=== PATIENT | female | born 1945 | race Caucasian/White ===

== ENCOUNTER 2016-08-03 13:57 | Day surgery (SDC) | payer MEDICARE, BC ==
[~2016-08-03 13:57] MED LIST: Cataract Ophth Solution EYERT PRN; Hypromellose 2.5% Ophth Soln 15 ML Bottle EYERT PRN; Lactated Ringers 1,000 ML IV SCH; Lidocaine 1% 2 ML ONE; Proparacaine 0.5% Ophth Soln 15 ML Bottle EYERT PRN
[2016-08-03] MEDS ORDERED: Midazolam 1 MG/ML 2 ML SDV ONE (15:28)
[2016-08-03] MEDS ORDERED: Balanced Salt Solution Ophth Irrig 500 ML Bottle IOCULAR ONE ×2 (16:16→16:20)
[2016-08-03] MEDS: Brimonidine 0.2% Ophth Soln 5 ML Bottle ONE ×2 (16:16→16:22)
[2016-08-03] MEDS: Povidone-Iodine 5% Sterile Ophth Soln 30 ML Bottle ONE ×2 (16:17→16:20)
[2016-08-03] MEDS: Lidocaine 3.5% Ophth Gel 1 ML Bottle ONE ×2 (16:17→16:22)
[2016-08-03] MEDS ORDERED: Lidocaine 1% PF 2 ML SDV INFILT ONE ×2 (16:20→16:21)
[2016-08-03] MEDS ORDERED: Chondroitin Sulfate/Hyaluronate Sodium Ophth Inj 0.5 ML Syringe IOCULAR ONE ×2 (16:21→16:22)
[2016-08-03] MEDS ORDERED: Ciprofloxacin 0.3% Ophth Soln 2.5 ML Bottle EYERT ONE (16:22)
[2016-08-03] MEDS ORDERED: Vancomycin 500 MG SDV EYERT ONE (16:22)
[2016-08-03 17:13] VITALS: BP 164/74
--- NOTE | 2016-08-03 21:10 | OR ---
PREOPERATIVE DIAGNOSIS: Senile nuclear cataract, right eye. POSTPROCEDURE DIAGNOSIS: Pseudophakia, right eye. PROCEDURE PERFORMED: Cataract extraction with intraocular lens implantation by phacoemulsification technique, right eye. ANESTHESIA: Topical anesthesia. ESTIMATED BLOOD LOSS: None. COMPLICATIONS: None. INDICATIONS: The patient is a 70-year-old female, who was found to have a senile nuclear cataract, reducing her best corrected visual acuity. After explaining the risks, benefits, and alternatives of cataract surgery, an informed consent was obtained. DESCRIPTION OF PROCEDURE: After identifying the patient in the preoperative area, the patient was brought to the operating room. The patient was prepped and draped in a sterile fashion. A lid speculum was inserted into the eye. The microscope was brought into the field. Lidocaine gel was applied to the external surface of the eye. A paracentesis was made 3 clock hours away from the surgeon's operating hand. The anterior chamber was anesthetized with preservative-free Lidocaine. The anterior chamber was filled with Viscoat. A clear corneal incision was made at the 180-degree meridian with a 2.75mm keratome. A continuous tear circular capsulorrhexis was performed. The nucleus was hydrodissected with balanced salt solution. The nucleus was sculpted and removed from the eye using a divide and conquer technique with the phacoemulsification handpiece. The residual viscoelastic was removed with the I/A handpiece. The anterior chamber and capsular bag were filled with Amvisc. An ELENI lens, model PCB00 with a power of 21.0 diopters and a serial number of [id number] was injected into the capsular bag. The lens was rotated completely into the capsular bag with a Sinskey hook. The residual viscoelastic was removed with the I/A handpiece. The anterior chamber was filled with balanced salt solution to a physiologic pressure. The corneal wound was closed with stromal hydration and seen to be water tight by Weck-Laury sponge testing. The patient received a drop of Zymar and Alphagan at the end of the case. There were no complications of this case. The patient will be followed postoperatively by Dr. France Camacho. SKA: 08/03/2016 16:35:41 MODL: 08/03/2016 21:03:06 /[id number]
== END 2016-08-03 17:17 | disposition home or self-care (01) ==
LOC: VM.SDS 13:57
PROVIDERS: ATTEND Ophthalmology
DX: H25.11 Age-related nuclear cataract, right eye (principal); Z96.1 Presence of intraocular lens; D50.9 Iron deficiency anemia, unspecified; F42.9 Obsessive-compulsive disorder, unspecified; F33.1 Major depressive disorder, recurrent, moderate; Z88.8 Allergy status to other drugs, medicaments and biological substances; Z79.899 Other long term (current) drug therapy
CPT/HCPCS: 00142; 66984; A9270; J2250; J3370; J7120; V2632

== ENCOUNTER 2017-10-13 07:01 | Day surgery (SDC) | payer MEDICARE, BC ==
[~2017-10-13 07:01] MED LIST changes: -Cataract Ophth Solution EYERT PRN; -Hypromellose 2.5% Ophth Soln 15 ML Bottle EYERT PRN; -Lidocaine 1% 2 ML ONE; -Proparacaine 0.5% Ophth Soln 15 ML Bottle EYERT PRN
[2017-10-13] MEDS ORDERED: fentaNYL 100 MCG/2 ML SDV ONE (07:43)
[2017-10-13] MEDS ORDERED: Propofol 200 MG/20 ML SDV ONE (07:43)
[2017-10-13 09:26] VITALS: BP 120/58
--- NOTE | 2017-10-13 15:13 | OR ---
PREOPERATIVE DIAGNOSIS: Persistent nausea, epigastric pain. POSTOPERATIVE DIAGNOSIS: Status post gastric bypass with anastomotic ulcers. PROCEDURE PROPOSED AND PROCEDURE DONE: Upper gastrointestinal panendoscopy with gastric biopsies. INDICATION: This is a 72-year-old female, who had a gastric bypass surgery done about 22 years ago. Recently, she has been having a lot of persistent nausea and some epigastric pain, and she also has been on Protonix for quite a few years. She feels that the most recent nausea started when she was on an arthritic medicine and that was stopped and now she is on methotrexate. She has had some very slight improvement, and she just recently increased her Protonix to twice a day. TECHNIQUE: The patient was brought to the endoscopy suite and placed in left lateral decubitus position. She was sedated per TELEPHONE RECORDER with propofol. A flexible video gastroscope was then passed transorally and under visualization advanced well into the esophagus. I then advanced the scope through the pylorus. She had a very small gastric pouch from previous gastric bypass surgery. The anastomosis was patent to the jejunal anastomosis, but right in the anastomotic area, there was a small circular ulcer and also a linear ulcer which certainly could be the cause of pain. I then advanced the scope well down the jejunal limb. I was unable to get down deep enough to get back into the partitioned off part of the stomach. I brought the scope back into the gastric pouch and a couple biopsies were taken of the mucosa to rule out H. pylori. There were no signs of any GERD or esophageal stenosis, and the remainder of esophagus was normal as the scope was then withdrawn. The patient tolerated the procedure well. FINAL IMPRESSION: Anastomotic ulcers status post gastric bypass procedure. PLAN: The patient just recently got increased to Protonix twice a day, and I think we should give that time to see if the dosing help her. One could always add some Carafate if she is not improving and may benefit with a GI referral if she does not improve. SCM: 10/13/2017 08:59:15 MODL: 10/13/2017 15:07:45 /[id number]
== END 2017-10-13 10:10 | disposition home or self-care (01) ==
LOC: VM.SDS 07:01
PROVIDERS: ATTEND Surgery
DX: K28.9 Gastrojejunal ulcer, unspecified as acute or chronic, without hemorrhage or perforation (principal); I10 Essential (primary) hypertension; F41.1 Generalized anxiety disorder; D50.9 Iron deficiency anemia, unspecified; Z98.84 Bariatric surgery status; Z88.8 Allergy status to other drugs, medicaments and biological substances
CPT/HCPCS: 00731; 43239; J2704; J3010; J7120

== ENCOUNTER 2019-10-25 21:59 | Emergency (ER) | payer MEDICARE ==
[2019-10-25] MEDS ORDERED: Lactated Ringers 1,000 ML IV ONE (22:19)
--- NOTE | 2019-10-25 22:21 | EDM.PDOC ---
ED HPI GENERAL MEDICAL PROBLEM - General Stated Complaint: fever weakness Time Seen by Provider: 10/25/19 22:10 Source of Information: Reports: Patient History Limitations: Reports: No Limitations - History of Present Illness INITIAL COMMENTS - FREE TEXT/NARRATIVE: Patient comes emergency department today from home with concerns of weakness and a fever. This patient starting on Monday of this week she took her methotrexate 50 mg injection twice a day on Monday and although this was only supposed to be once a week injection. She has been struggling with some memory issues at home according to the and she accidentally took a rather large amount of methotrexate over 2-day. Accidentally. 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 Yesterday she felt very weak fatigued and tired. Last night and this morning she noticed a fever. She has very diaphoretic she is very fatigued and malaised all over she has no energy. She has no chest pain shortness of breath or difficulty breathing. No cough or shortness of breath. Complain of generalized malaise and fatigue. No body aches. No abdominal pain nausea or vomiting. She does complain of quite a bit of sores in her mouth. She has had very little appetite. No nausea or vomiting. No abdominal pain. No hematuria dysuria or urinary frequency. No black or tarry stools. lower legs/hips Pain Score (Numeric/FACES): 8 - Related Data Allergies Allergy/AdvReac Type Severity Reaction Status Date / Time bupropion [From Wellbutrin] Allergy Headache Verified 10/25/19 23:33 gabapentin Allergy Other Verified 10/25/19 23:33 pregabalin [From Lyrica] Allergy Swelling Verified 10/25/19 23:33 Home Meds: Home Meds Mirtazapine [Remeron] 15 mg PO BEDTIME 03/10/15 [History] Modafinil [Provigil] 200 mg PO Q12H 03/10/15 [History] Pantoprazole [Protonix] 40 mg PO BIDMEALS 03/10/15 [History] SUMAtriptan succinate [Imitrex] 100 mg PO ASDIRECTED PRN 03/10/15 [History] traZODone 200 mg PO BEDTIME PRN 03/10/15 [History] Calcium Carbonate/Vitamin D3 [Calcium 600 + Vit D Softgel] 1 tab PO DAILY 08/02/16 [History] Celecoxib [CeleBREX] 200 mg PO BEDTIME 08/02/16 [History] Cholecalciferol (Vitamin D3) [Vitamin D3] 2,000 unit PO DAILY 08/02/16 [History] Cyanocobalamin (Vitamin B12) [Vitamin B12] 1 tab PO DAILY 08/02/16 [History] DULoxetine [Cymbalta] 60 mg PO BID 08/02/16 [History] Ferrous Sulfate 325 mg PO DAILY 08/02/16 [History] Multivitamin [Multivitamins] 1 tab PO DAILY 08/02/16 [History] ClonazePAM [KlonoPIN] 1 mg PO ASDIRECTED 10/13/17 [History] Magnesium Oxide [Magnesium] 500 mg PO DAILY 10/13/17 [History] Verapamil HCl [Verapamil ER Pm] 100 mg PO BEDTIME 10/13/17 [History] metHOTREXate sodium [Methotrexate] 20 mg PO Q7D 10/13/17 [History] ARIPiprazole [Abilify] 10 mg PO DAILY 02/20/18 [History] Acetaminophen [Tylenol Arthritis] 1,300 mg PO TID PRN 02/20/18 [History] Folic Acid 1 mg PO DAILY 02/20/18 [History] Metoclopramide HCl 5 mg PO Q8H PRN 02/20/18 [History] Nortriptyline 10 mg PO BEDTIME 02/20/18 [History] Vitamin A 8,000 unit PO BID 02/20/18 [History] Vitamin B Complex 1 each PO DAILY 02/20/18 [History] Diclofenac Sodium [Voltaren 1%] 8 gm TP QID 90 Days #8 tube 02/26/19 [Rx] traMADol [Ultram] 50 - 100 mg PO Q6H PRN 30 Days #180 tablet 10/14/19 [Rx] traMADol [Ultram] 50 - 100 mg PO Q6H PRN 30 Days #180 tablet MDD 6 tabs 10/15/19 [Rx] Past Medical History HEENT History: Reports: Cataract Cardiovascular History: Reports: Other (See Below) Other Cardiovascular History: abnormal stress echo Respiratory History: Reports: SOB Gastrointestinal History: Reports: GERD Other Gastrointestinal History: duodenal ulcer, polyps Musculoskeletal History: Reports: Arthritis, Fibromyalgia, Osteoarthritis Other Musculoskeletal History: lumbar spondylolysis, cervicalgia, shoulder impingement, tennis elbow. carpal tunnel. knee pain bilat. Last fall 3 weeks ago Neurological History: Reports: Concussion, Migraines, Neuropathy, Peripheral Other Neuro History: chronic fatigue. ddd. Insomnia. Concussion 05/15/19 from fall. Dizziness Psychiatric History: Reports: Anxiety, Depression, OCD Other Psychiatric History: insomnia Endocrine/Metabolic History: Reports: None Hematologic History: Reports: Anemia, Iron Deficiency Oncologic (Cancer) History: Reports: None - Past Surgical History HEENT Surgical History: Reports: Other (See Below) Other HEENT Surgeries/Procedures: TATOOS TO EYELIDS AND EYEBROWS Cardiovascular Surgical History: Reports: None Respiratory Surgical History: Reports: None GI Surgical History: Reports: Appendectomy, Bariatric Procedure, Cholecystectomy, Colonoscopy, EGD Female Surgical History: Reports: None Musculoskeletal Surgical History: Reports: Carpal Tunnel, ORIF, Other (See Below) Other Musculoskeletal Surgeries/Procedures:: THUMB FUSION WITH SKREWS RELATED TO CARPAL TUNNEL ISSUES Social & Family History - Family History Cardiac: Reports: Hypertension Respiratory: Reports: Sleep Apnea Musculoskeletal: Reports: Arthritis, Back pain, Chronic, Fibromyalgia, Neck Pain, Chronic, Osteoporosis, RA Neurological: Reports: Migraines, Neuropathy, Diabetic Endocrine/Metabolic: Reports: Diabetes, type II, Hypothyroidism, Obesity/MBI 30+ Oncologic: Reports: Thyroid - Caffeine Use Caffeine Use: Reports: Coffee Caffeine Use Comment: 2 CUPS A DAY - Living Situation & Occupation Living situation: Reports: , with Spouse 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 Good social network.) ED ROS GENERAL - Review of Systems Review Of Systems: Comprehensive ROS is negative, except as noted in HPI. ED EXAM, GENERAL - Physical Exam Exam: See Below Free Text/Narrative:: When I enter the room the patient is quite pale and quite diaphoretic. Exam Limited By: No Limitations General Appearance: Alert, WD/WN, Moderate Distress Eye Exam: Bilateral Eye: EOMI Ears: Normal External Exam, Normal TMs Nose: Normal Inspection Throat/Mouth: Normal Teeth, No Airway Compromise, Other (She has pretty profound stomatitis on the lips and throughout the bucca mucosa underlying the tongue as well. Oral cavity is dry.) Head: Atraumatic, Normocephalic Neck: Normal Inspection, Supple, Non-Tender, Full Range of Motion Respiratory/Chest: No Respiratory Distress, Lungs Clear, Normal Breath Sounds, No Accessory Muscle Use, Chest Non-Tender Cardiovascular: Normal Peripheral Pulses, Regular Rate, Rhythm, Tachycardia Peripheral Pulses: 2+: Radial (L), Radial (R), Posterior Tibial (L), Posterior Tibial (R), Dorsalis Pedis (L), Dorsalis Pedis (R) GI/Abdominal: Normal Bowel Sounds, Soft, Non-Tender (Female) Exam: Deferred Rectal (Female) Exam: Deferred Back Exam: Normal Inspection, Full Range of Motion Extremities: Normal Range of Motion, Non-Tender, No Pedal Edema, Normal Capillary Refill, Pallor Neurological: Alert, Oriented, CN II-XII Intact, Normal Cognition, No Motor/Sensory Deficits Psychiatric: Flat Affect Skin Exam: Intact, Cool, Diaphoretic Lymphatic: No Adenopathy Course - Vital Signs Last Recorded V/S: Last Vital Signs Temp 96.5 F L 10/25/19 23:19 Pulse 97 10/25/19 23:25 Resp 16 10/25/19 23:25 BP 140/73 10/25/19 23:25 Pulse Ox 98 10/25/19 23:25 - Orders/Labs/Meds Orders: Active Orders 24 hr Category Date Time Status Oxygen Therapy Adult [Oxygen Therapy, ED] [] Care 10/25/19 22:30 Active ASDIRECTED CULTURE BLOOD [BC] Stat Lab 10/25/19 22:37 Received CULTURE BLOOD [BC] Stat Lab 10/25/19 22:43 Received Blood Culture x2 Reflex Set [OM.PC] Stat Oth 10/25/19 22:07 Ordered Labs: Laboratory Tests 10/25/19 10/25/19 10/25/19 Range/Units 22:05 22:37 22:37 WBC 0.8 L* (4.0-10.0) x10^3/uL RBC 3.46 L (4.00-5.50) x10^6/uL Hgb 11.4 L (12.0-16.0) g/dL Hct 33.3 (33.0-47.0) % MCV 96.2 H (78.0-93.0) fL MCH 32.9 H (26.0-32.0) pg MCHC 34.2 (32.0-36.0) g/dL RDW Coeff of Holli 11.8 (10.0-15.0) % Plt Count 232 (130-400) x10^3/uL Add Manual Diff Yes Neutrophils % (Manual) 18 L (50-80) % Lymphocytes % (Manual) 50 (25-50) % Reactive Lymphs % 2 H (0) % Monocytes % (Manual) 16 H (2-11) % Eosinophils % (Manual) 14 H (0-4) % Platelet Estimate Adequate Macrocytosis 1+ slight H Sodium 134 L (136-145) mmol/L Potassium 3.7 (3.5-5.1) mmol/L Chloride 97 L (98-107) mmol/L Carbon Dioxide 28 (21-32) mmol/L Anion Gap 12.7 (10-20) mmol/L BUN 13 (7-18) mg/dL Creatinine 0.5 L (0.55-1.02) mg/dL Est Cr Clr Drug Dosing TNP Estimated GFR (MDRD) > 60 Glucose 132 H (74-106) mg/dL Lactic Acid (0.4-2.0) mmol/L Calcium 8.8 (8.5-10.1) mg/dL Corrected Calcium 9.68 (8.5-10.1) mg/dL Total Bilirubin 0.7 (0.2-1.0) mg/dL AST 51 H (15-37) U/L ALT 74 H (14-59) U/L Alkaline Phosphatase 82 (46-116) U/L C-Reactive Protein 3.9 H (<=0.9) mg/dL Total Protein 5.7 L (6.4-8.2) g/dL Albumin 2.9 L (3.4-5.0) g/dL Globulin 2.8 Albumin/Globulin Ratio 1.04 COVID-19 (PHYLLIS) Negative (NEGATIVE) 10/25/19 Range/Units 22:37 WBC (4.0-10.0) x10^3/uL RBC (4.00-5.50) x10^6/uL Hgb (12.0-16.0) g/dL Hct (33.0-47.0) % MCV (78.0-93.0) fL MCH (26.0-32.0) pg MCHC (32.0-36.0) g/dL RDW Coeff of Holli (10.0-15.0) % Plt Count (130-400) x10^3/uL Add Manual Diff Neutrophils % (Manual) (50-80) % Lymphocytes % (Manual) (25-50) % Reactive Lymphs % (0) % Monocytes % (Manual) (2-11) % Eosinophils % (Manual) (0-4) % Platelet Estimate Macrocytosis Sodium (136-145) mmol/L Potassium (3.5-5.1) mmol/L Chloride (98-107) mmol/L Carbon Dioxide (21-32) mmol/L Anion Gap (10-20) mmol/L BUN (7-18) mg/dL Creatinine (0.55-1.02) mg/dL Est Cr Clr Drug Dosing Estimated GFR (MDRD) Glucose (74-106) mg/dL Lactic Acid 0.9 (0.4-2.0) mmol/L Calcium (8.5-10.1) mg/dL Corrected Calcium (8.5-10.1) mg/dL Total Bilirubin (0.2-1.0) mg/dL AST (15-37) U/L ALT (14-59) U/L Alkaline Phosphatase (46-116) U/L C-Reactive Protein (<=0.9) mg/dL Total Protein (6.4-8.2) g/dL Albumin (3.4-5.0) g/dL Globulin Albumin/Globulin Ratio COVID-19 (PHYLLIS) (NEGATIVE) Meds: Medications Discontinued Medications Generic Name Dose Route Start Last Admin Trade Name You PRN Reason Stop Dose Admin Lactated Ringer's 1,000 mls @ 500 mls/hr 10/25/19 22:19 10/25/19 22:30 Ringers, Lactated IV 10/26/19 00:18 500 mls/hr ONETIME ONE Administration Sodium Bicarbonate 100 meq/ 1,100 mls @ 125 mls/hr 10/25/19 23:04 10/26/19 00:16 Dextrose/Water IV 10/26/19 07:51 125 mls/hr ONETIME ONE Administration Sodium Bicarbonate 50 meq 10/25/19 22:58 10/25/19 23:04 Sodium Bicarbonate 8.4% IVPUSH 10/25/19 22:59 50 meq ONETIME ONE Administration Tramadol HCl 100 mg 10/26/19 00:28 10/26/19 00:32 Ultram PO 10/26/19 00:29 100 mg ONETIME ONE Administration - Re-Assessments/Exams Free Text/Narrative Re-Assessment/Exam: 10/26/19 14:38 This patient really is concerning for methotrexate toxicity with an accidental overdose. Discussing it with her who verified what she was taking at home is that she took 25 mg injectable methotrexate twice a day on either Monday and Monday or Monday and he is unsure of. Initial LR bolus started with sodium bicarb 1 amp as well for alkalinization of urine due to the methotrexate toxicity concern. Her CBC shows a WBC of 0.8. Better after the fluid hydration and we started D5 water with 2 A of bicarb at 125 mils an hour. Spoke with poison control. Their guidance is that they agree with the alk alinization of the urine continue fluid hydration and she needs IV leucovorin for rescue therapy for methotrexate toxicity. I called and spoke with Dr. Crawford's the hospitalist title one teacher at [facility] in [place]. HPI ER COURSE findings and concerns were relayed to him. He accepted the patient in transfer at this time with no new orders. I discussed the plan of care with the patient as well as her . They are comfortable with this plan and their questions answered. Departure - Departure Time of Disposition: 23:24 Disposition: DC/Tfer to [facility] 02 Clinical Impression: Methotrexate toxicity Qualifiers: Encounter type: initial encounter Injury intent: accidental or unintentional Qualified Code(s): T45.1X1A - Poisoning by antineoplastic and immunosuppressive drugs, accidental (unintentional), initial encounter - Discharge Information Referrals: Radha Best DO [Primary Care Provider] - Forms: Interfacility Transfer EMTALA - My Orders Last 24 Hours: My Active Orders 10/25/19 22:07 Blood Culture x2 Reflex Set [OM.PC] Stat 10/25/19 22:30 Oxygen Therapy Adult [Oxygen Therapy, ED] [RC] ASDIRECTED 10/25/19 22:37 CULTURE BLOOD [BC] Stat 10/25/19 22:43 CULTURE BLOOD [BC] Stat - Assessment/Plan Last 24 Hours: My Active Orders 10/25/19 22:07 Blood Culture x2 Reflex Set [OM.PC] Stat 10/25/19 22:30 Oxygen Therapy Adult [Oxygen Therapy, ED] [RC] ASDIRECTED 10/25/19 22:37 CULTURE BLOOD [BC] Stat 10/25/19 22:43 CULTURE BLOOD [BC] Stat
[2019-10-25] MEDS ORDERED: Sodium Bicarbonate 8.4% 50 MEQ/50 ML Syringe IVPUSH ONE (22:58)
[2019-10-25] MEDS ORDERED: Sodium Bicarbonate 100 MEQ in Dextrose 5% in Water 1,000 ML IV ONE ×2 (23:04)
[2019-10-25 23:05] LABS: CHLORIDE,CL 97 mmol/L (98-107); SODIUM,NA 134 mmol/L (136-145)
[2019-10-25 23:06] LABS: ANION GAP 12.7 mmol/L (10-20)
[2019-10-26 00:10] VITALS: BP 140/73; PULSE 97
[2019-10-26] MEDS ORDERED: traMADol 50 MG Tab PO ONE (00:28)
--- NOTE | 2019-10-26 10:38 | CR ---
[id number] RAD/RAD Chest PA or AP 1V EXAM: RAD Chest PA or AP 1V INDICATION: FEVER. COUGH. COMPARISON: None. DISCUSSION: Cardiomediastinal silhouette is normal in size and contour. No infiltrate, effusion, pneumothorax, or edema. IMPRESSION: No acute cardiopulmonary abnormality. Thor Huertas DO 10/26/19 1037 Thank you for allowing us to participate in the care of your patient.
== END 2019-10-26 00:35 | disposition short-term general hospital (02) ==
LOC: VM.ED 21:59
DX: T45.1X1A Poisoning by antineoplastic and immunosuppressive drugs, accidental (unintentional), initial encounter (principal); Z88.4 Allergy status to anesthetic agent; Z88.8 Allergy status to other drugs, medicaments and biological substances; K21.9 Gastro-esophageal reflux disease without esophagitis; G62.9 Polyneuropathy, unspecified; F41.9 Anxiety disorder, unspecified; F32.9 Major depressive disorder, single episode, unspecified; M19.90 Unspecified osteoarthritis, unspecified site; Z20.828 Contact with and (suspected) exposure to other viral communicable diseases
CPT/HCPCS: 36415; 71045; 80053; 83605; 85025; 86140; 87040; 96365; 96376; 99284-GF; 99285-25; A9270-GY; J7060; J7120; U0002

== ENCOUNTER 2021-04-03 13:45 | Emergency (ER) | payer MEDICARE ==
[2021-04-03] MEDS ORDERED: methylPREDNISolone Sodium Succinate 125 MG/2 ML SDV IVPUSH SCH (14:15)
[2021-04-03 14:58] LABS: PCO2 ARTERIAL,POC 32 mmHg (35-48)
[2021-04-03 15:12] LABS: CHLORIDE,CL 97 mmol/L (98-107); SODIUM,NA 135 mmol/L (136-145)
[2021-04-03 15:14] LABS: ANION GAP 18.7 mmol/L (5-15)
--- NOTE | 2021-04-03 15:17 | EDM.PDOC ---
ED HPI GENERAL MEDICAL PROBLEM - General Chief Complaint: Respiratory Problem Stated Complaint: Positive COVID home test, weak, came in by EMS, decreaed o2 sat Time Seen by Provider: 04/03/21 13:45 Source of Information: Reports: Patient (pt able to answer with one word answers), EMS, Family History Limitations: Reports: Respiratory Distress - History of Present Illness INITIAL COMMENTS - FREE TEXT/NARRATIVE: Tested positive for COVID at home last Monday, daughter states she was weak and SOB three days before that. Not vaccinated. Daughter states was getting progressively worse at home. EMS was called, reported that pt had o2 sat in the 70s on room air. Was on 6L NC when arrived to ER. States she does want to be intubated if necessary. Onset: Gradual Onset Date: 03/27/21 Duration: Getting Worse Improves with: Reports: None Worsens with: Reports: Movement Associated Symptoms: Reports: Shortness of Breath, Weakness - Related Data Allergies Allergy/AdvReac Type Severity Reaction Status Date / Time gabapentin Allergy Facial Verified 12/15/20 12:23 Swelling pregabalin [From Lyrica] Allergy Swelling Verified 12/15/20 12:23 methyltrexate Allergy Confusion Uncoded 12/15/20 12:23 Home Meds: Home Meds Modafinil [Provigil] 200 mg PO DAILY 03/10/15 [History] Pantoprazole [Protonix] 40 mg PO BIDMEALS 03/10/15 [History] SUMAtriptan succinate [Imitrex] 100 mg PO ASDIRECTED PRN 03/10/15 [History] traZODone 200 mg PO BEDTIME PRN 03/10/15 [History] Calcium Carbonate/Vitamin D3 [Calcium 600 + Vit D Softgel] 1 tab PO DAILY [History] Cholecalciferol (Vitamin D3) [Vitamin D3] 2,000 unit PO DAILY 08/02/16 [History] DULoxetine [Cymbalta] 60 mg PO BID 08/02/16 [History] Multivitamin [Multivitamins] 1 tab PO DAILY 08/02/16 [History] ClonazePAM [KlonoPIN] 0.5 mg PO BID PRN 10/13/17 [History] Magnesium Oxide [Magnesium] 500 mg PO DAILY 10/13/17 [History] ARIPiprazole [Abilify] 10 mg PO DAILY 02/20/18 [History] Acetaminophen [Tylenol Arthritis] 1,300 mg PO TID PRN 02/20/18 [History] Metoclopramide HCl 5 mg PO TID PRN 02/20/18 [History] Nortriptyline 20 mg PO BEDTIME 02/20/18 [History] Vitamin A 8,000 unit PO BID 02/20/18 [History] Vitamin B Complex 1 each PO DAILY 02/20/18 [History] Ascorbic Acid [Vitamin C] 1,000 mg PO DAILY 12/15/20 [History] Celecoxib 200 mg PO DAILY 12/15/20 [History] Cyclobenzaprine [Flexeril] 5 mg PO BID PRN 12/15/20 [History] Diclofenac Sodium [Solaraze] 100 gm TP BID 12/15/20 [History] Hydroxychloroquine [Plaquenil] 200 mg PO BIDMEALS 12/15/20 [History] Ondansetron [Zofran ODT] 4 mg PO Q4H PRN 12/15/20 [History] Sennosides/Docusate Sodium [Senna-Docusate Sodium Tablet] 1 each PO BID 12/15/20 [History] traMADol [Ultram] 50 - 100 mg PO Q6H PRN 30 Days #180 tab MDD 6 tabs 03/16/21 [Rx] Past Medical History HEENT History: Reports: Cataract, Other (See Below) Other HEENT History: posterior vitreous detachment Cardiovascular History: Reports: Other (See Below) Other Cardiovascular History: abnormal stress echo Respiratory History: Reports: SOB, Other (See Below) Other Respiratory History: HUGO Gastrointestinal History: Reports: Colon Polyp, GERD, Other (See Below) Other Gastrointestinal History: duodenal ulcer; mucositis Musculoskeletal History: Reports: Arthritis, Fibromyalgia, Osteoarthritis, Osteoporosis, RA Other Musculoskeletal History: lumbar spondylolysis; cervicalgia; shoulder impingement; tennis elbow; carpal tunnel;deg disc disease; knee pain bilat. Last fall 3 weeks ago Neurological History: Reports: Concussion, Migraines, Neuropathy, Peripheral Other Neuro History: chronic fatigue. Concussion 05/15/19 from fall Psychiatric History: Reports: Anxiety, Depression Other Psychiatric History: insomnia Endocrine/Metabolic History: Reports: Other (See Below) Other Endocrine/Metabolic History: moderate protein-calorie malnutrition Hematologic History: Reports: Anemia, Iron Deficiency, Other (See Below) Other Hematologic History: leukopenia Oncologic (Cancer) History: Reports: None - Past Surgical History HEENT Surgical History: Reports: Other (See Below) Other HEENT Surgeries/Procedures: TATOOS TO EYELIDS AND EYEBROWS Cardiovascular Surgical History: Reports: None Respiratory Surgical History: Reports: None GI Surgical History: Reports: Appendectomy, Bariatric Procedure, Cholecystectomy, Colonoscopy, EGD Female Surgical History: Reports: None Musculoskeletal Surgical History: Reports: Carpal Tunnel, ORIF, Other (See Below) Other Musculoskeletal Surgeries/Procedures:: THUMB FUSION WITH SKREWS RELATED TO CARPAL TUNNEL ISSUES Social & Family History - Family History Cardiac: Reports: Hypertension Respiratory: Reports: Sleep Apnea Musculoskeletal: Reports: Arthritis, Back pain, Chronic, Fibromyalgia, Neck Pain, Chronic, Osteoporosis, RA Neurological: Reports: Migraines, Neuropathy, Diabetic Endocrine/Metabolic: Reports: Diabetes, type II, Hypothyroidism, Obesity/MBI 30+ Oncologic: Reports: Thyroid - Caffeine Use Caffeine Use: Reports: Soda Caffeine Use Comment: 2 CUPS A DAY - Living Situation & Occupation Living situation: Reports: , with Spouse 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 Good social network.) ED ROS GENERAL - Review of Systems Review Of Systems: Unable To Obtain (pt in resp distress) Reason Not Obtained: resp distress ED EXAM, GENERAL - Physical Exam Exam: See Below Exam Limited By: Respiratory Distress General Appearance: Moderate Distress Eye Exam: Bilateral Eye: EOMI, Normal Inspection Ears: Normal External Exam Nose: Normal Inspection, Normal Mucosa, No Blood Throat/Mouth: Normal Inspection, Normal Oropharynx Head: Atraumatic, Normocephalic Neck: Normal Inspection, Supple, Non-Tender, Full Range of Motion Respiratory/Chest: Respiratory Distress, Decreased Breath Sounds, Other (coarse lung sounds, diminished throughout) Cardiovascular: Regular Rate, Rhythm, No Edema GI/Abdominal: Normal Bowel Sounds, Soft, No Distention Back Exam: Normal Inspection Extremities: Normal Range of Motion (cool extremities), No Pedal Edema Neurological: Oriented, Slow to Respond Psychiatric: Other (in resp distress, slow to answer) Lymphatic: No Adenopathy Course - Orders/Labs/Meds Orders: Active Orders 24 hr Category Date Time Status Chest 1V Frontal [CR] Stat Exams 04/03/21 14:13 Ordered methylPREDNISolone Sod Succ [Solu-MEDROL] Med 04/03/21 14:15 Active 125 mg IVPUSH DAILY Medication Orders Methylprednisolone Sodium Succinate (Methylprednisolone Sodium Succinate 125 Mg/2 Ml Sdv) 125 mg IVPUSH DAILY [facility]AS[facility] Labs: Laboratory Tests 04/03/21 04/03/21 04/03/21 Range/Units 14:21 14:40 14:40 WBC 6.3 (4.0-10.0) x10^3/uL RBC 3.68 L (4.00-5.50) x10^6/uL Hgb 11.4 L (12.0-16.0) g/dL Hct 34.3 (33.0-47.0) % MCV 93.2 H (78.0-93.0) fL MCH 31.0 (26.0-32.0) pg MCHC 33.2 (32.0-36.0) g/dL RDW Coeff of Holli 12.6 (10.0-15.0) % Plt Count 283 (130-400) x10^3/uL Immature Gran % (Auto) 1.70 H (0.00-0.43) % Neut % (Auto) 82.9 H (50.0-80.0) % Lymph % (Auto) 8.8 L (25.0-50.0) % [place] % (Auto) 6.6 (2.0-11.0) % Eos % (Auto) 0.0 (0.0-4.0) % Baso % (Auto) 0.0 L (0.2-1.2) % Neut # (Auto) 5.2 (1.8-7.7) x10^3/uL Lymph # (Auto) 0.6 L (1.0-4.8) x10^3/uL [place] # (Auto) 0.4 (0.0-0.8) x10^3/uL Eos # (Auto) 0.0 (0.0-0.5) x10^3/uL Baso # (Auto) 0.0 (0.0-0.2) x10^3/uL Immature Gran # (Auto) 0.11 H (0.00-0.07) x10^3/uL POC ABG pH (7.35-7.45) pH POC ABG pCO2 (35-48) mmHg POC ABG pO2 (83-108) mmHg POC ABG HCO3 (21-28) mmol/L POC ABG Total CO2 (22-29) mmol/L POC ABG O2 Sat (94-98) % POC ABG Base Excess ((-2)-3) mmol/L POC FiO2 Sodium 135 L (136-145) mmol/L Potassium 3.7 (3.5-5.1) mmol/L Chloride 97 L (98-107) mmol/L Carbon Dioxide 23 (21-32) mmol/L Anion Gap 18.7 H (5-15) mmol/L BUN 21 H (7-18) mg/dL Creatinine 1.1 H (0.55-1.02) mg/dL Est Cr Clr Drug Dosing TNP Estimated GFR (MDRD) 49 Glucose 89 (70-99) mg/dL Lactic Acid (0.4-2.0) mmol/L Calcium 8.5 (8.5-10.1) mg/dL Corrected Calcium 9.8 (8.5-10.1) mg/dL Total Bilirubin 0.5 (0.2-1.0) mg/dL AST 42 H (15-37) U/L ALT 28 (14-59) U/L Alkaline Phosphatase 95 (46-116) U/L Total Protein 5.9 L (6.4-8.2) g/dL Albumin 2.4 L (3.4-5.0) g/dL Globulin 3.5 Albumin/Globulin Ratio 0.69 Influenza Type A RNA Negative (NEGATIVE) RSV RNA (INAAT) Negative (NEGATIVE) Influenza Type B RNA Negative (NEGATIVE) SARS-CoV-2 RNA (PHYLLIS) Positive H (NEGATIVE) 04/03/21 04/03/21 Range/Units 14:40 14:51 WBC (4.0-10.0) x10^3/uL RBC (4.00-5.50) x10^6/uL Hgb (12.0-16.0) g/dL Hct (33.0-47.0) % MCV (78.0-93.0) fL MCH (26.0-32.0) pg MCHC (32.0-36.0) g/dL RDW Coeff of Holli (10.0-15.0) % Plt Count (130-400) x10^3/uL Immature Gran % (Auto) (0.00-0.43) % Neut % (Auto) (50.0-80.0) % Lymph % (Auto) (25.0-50.0) % [place] % (Auto) (2.0-11.0) % Eos % (Auto) (0.0-4.0) % Baso % (Auto) (0.2-1.2) % Neut # (Auto) (1.8-7.7) x10^3/uL Lymph # (Auto) (1.0-4.8) x10^3/uL [place] # (Auto) (0.0-0.8) x10^3/uL Eos # (Auto) (0.0-0.5) x10^3/uL Baso # (Auto) (0.0-0.2) x10^3/uL Immature Gran # (Auto) (0.00-0.07) x10^3/uL POC ABG pH 7.38 (7.35-7.45) pH POC ABG pCO2 32 L (35-48) mmHg POC ABG pO2 61 L (83-108) mmHg POC ABG HCO3 18.9 L (21-28) mmol/L POC ABG Total CO2 19.7 L (22-29) mmol/L POC ABG O2 Sat 91.0 L (94-98) % POC ABG Base Excess -6 L ((-2)-3) mmol/L POC FiO2 80 Sodium (136-145) mmol/L Potassium (3.5-5.1) mmol/L Chloride (98-107) mmol/L Carbon Dioxide (21-32) mmol/L Anion Gap (5-15) mmol/L BUN (7-18) mg/dL Creatinine (0.55-1.02) mg/dL Est Cr Clr Drug Dosing Estimated GFR (MDRD) Glucose (70-99) mg/dL Lactic Acid 2.9 H* (0.4-2.0) mmol/L Calcium (8.5-10.1) mg/dL Corrected Calcium (8.5-10.1) mg/dL Total Bilirubin (0.2-1.0) mg/dL AST (15-37) U/L ALT (14-59) U/L Alkaline Phosphatase (46-116) U/L Total Protein (6.4-8.2) g/dL Albumin (3.4-5.0) g/dL Globulin Albumin/Globulin Ratio Influenza Type A RNA (NEGATIVE) RSV RNA (INAAT) (NEGATIVE) Influenza Type B RNA (NEGATIVE) SARS-CoV-2 RNA (PHYLLIS) (NEGATIVE) Meds: Medications Generic Name Dose Route Start Last Admin Trade Name Freq PRN Reason Stop Dose Admin Methylprednisolone Sodium Succinate 125 mg 04/03/21 14:15 Methylprednisolone Sodium Succinate 125 Mg/2 Ml Sdv IVPUSH DAILY [facility] - Re-Assessments/Exams Free Text/Narrative Re-Assessment/Exam: 04/03/21 16:42 The patient was immediately placed on oxygen upon arrival to ER. Called for labs and xray stat. She was given duo neb tx and solumedrol 125mg iv. Had NS IVfs approx 1200ml during ER stay. Difficulty obtaining o2 sat, but pt was not able to maintain sat above 90 without 100% NRB. Lab had difficulty in drawing ABG. Called [facility] even before labs back in order to facilitate getting pt to higher level of care in a timely manner. Dr Gay accepted pt. COVID positive, lactic acid high, CXR patchy white throughout. EMS applied CPAP on arrival. Daughter kept updated throughout. Departure - Departure Time of Disposition: 15:33 ([facility]) Disposition: DC/Tfer to Acute Hospital 02 Condition: Fair Clinical Impression: Pneumonia due to 2019-nCoV - Discharge Information Referrals: Radha Best, [Primary Care Provider] - Forms: ED Department Discharge - Problem List & Annotations (1) Pneumonia due to 2019-nCoV SNOMED Code(s): 590341706134403739 Code(s): U07.1 - COVID-19; J12.82 - PNEUMONIA DUE TO CORONAVIRUS DISEASE 2019 Status: Acute Current Visit: Yes - Problem List Review Problem List Initiated/Reviewed/Updated: Yes - My Orders Last 24 Hours: My Active Orders 04/03/21 14:13 Chest 1V Frontal [CR] Stat 04/03/21 14:15 methylPREDNISolone Sod Succ [Solu-MEDROL] 125 mg IVPUSH DAILY - Assessment/Plan Last 24 Hours: My Active Orders 04/03/21 14:13 Chest 1V Frontal [CR] Stat 04/03/21 14:15 methylPREDNISolone Sod Succ [Solu-MEDROL] 125 mg IVPUSH DAILY
[2021-04-03 15:33] LABS: CORONAVIRUS COVID-19 NAA POSITIVE (NEGATIVE); RESPIRATORY SYNCYTIAL VIR NAA NEGATIVE (NEGATIVE)
--- NOTE | 2021-04-03 17:49 | CR ---
[id number] RAD/RAD Chest PA or AP 1V EXAM: SINGLE VIEW CHEST. INDICATION: COVID SHORTNESS OF BREATH COMPARISON: CORRELATION IS MADE WITH OCTOBER 25, 2019 FINDINGS: Extensive bilateral infiltrates are seen The cardiac silhouette is stable IMPRESSION: EXTENSIVE BILATERAL PNEUMONIA Cornelio Trejo MD 04/03/21 1505 Thank you for allowing us to participate in the care of your patient.
[2021-04-03 18:08] VITALS: BP 113/65; PULSE 105
== END 2021-04-03 15:35 | disposition short-term general hospital (02) ==
LOC: VM.ED 13:53
DX: U07.1 COVID-19 (principal); J12.82 Pneumonia due to coronavirus disease 2019; K21.9 Gastro-esophageal reflux disease without esophagitis; M19.90 Unspecified osteoarthritis, unspecified site; G62.9 Polyneuropathy, unspecified; Z88.8 Allergy status to other drugs, medicaments and biological substances; Z79.82 Long term (current) use of aspirin; Z79.899 Other long term (current) drug therapy; Z20.822 Contact with and (suspected) exposure to COVID-19
CPT/HCPCS: 0241U; 36415; 36600; 71045; 80053; 82803; 83605; 85025; 96374; 99285; J2930